=== PATIENT | female | born 1995 | race Caucasian/White ===

== ENCOUNTER 2020-07-01 19:20 | Inpatient (IN) | payer OTHER ==
[~2020-07-01] VITALS: Ht 172.7 cm; Wt 115.4 kg
[~2020-07-01 19:20] MED LIST: DOCU-131 PO; IBUP-1222 PO
[2020-07-03] MEDS ORDERED: PREN1TAB60 PO (08:42)
[2020-07-03] MEDS ORDERED: OXYcodone/APAP 5/325MG TABLET PO PRN ×2 (09:00→17:00)
[2020-07-03] MEDS ORDERED: MISOPROSTOL 200 MCG TABLET PR PRN ×2 (09:00→17:00)
[2020-07-03] MEDS ORDERED: OXYTOCIN 30U/ 0.9% NaCL 500ML 500 ML IV ONE (09:00)
[2020-07-03] MEDS ORDERED: DOCUSATE 100 MG CAPSULE PO PRN ×2 (09:00→17:00)
[2020-07-03] MEDS ORDERED: SIMETHICONE 80 MG CHEW TAB PO PRN ×2 (09:00→17:00)
[2020-07-03] MEDS: PRENATAL VIT/IRON/FA 1 EACH TABLET PO SCH (09:00)
[2020-07-03] MEDS ORDERED: TERBUTALINE 1 MG/ML, 1ML SQ PRN (09:00)
[2020-07-03] MEDS ORDERED: ONDANSETRON 2MG/ML, 2ML IVPush PRN (09:00)
[2020-07-03] MEDS ORDERED: FENTANYL PF 100 MCG/2ML IVPush PRN (09:00)
[2020-07-03] MEDS ORDERED: TERBUTALINE 1 MG/ML, 1ML IVPush PRN (09:00)
[2020-07-03] MEDS ORDERED: OXYTOCIN 30U/ 0.9% NaCL 500ML 500 ML IV PRN (09:00)
[2020-07-03] MEDS: OXYTOCIN 30U/ 0.9% NaCL 500ML 500 ML IV SCH ×3 (09:00→19:00)
[2020-07-03] MEDS ORDERED: D5%-LACTATED RINGERS 1,000 ML IV SCH (09:00)
[2020-07-03] MEDS: LACTATED RINGERS 1,000 ML IV SCH ×2 (09:09→16:29)
[2020-07-03] MEDS ORDERED: MISOPROSTOL 200 MCG TABLET ONE (09:12)
[2020-07-03] MEDS ORDERED: LIDOCAINE 1%, 20ML ONE (09:12)
[2020-07-03] MEDS ORDERED: NEWBORN KIT ONE (09:12)
[2020-07-03] MEDS ORDERED: OXYTOCIN 30U/ 0.9% NaCL 500ML 500 ML ONE ×2 (09:13→17:44)
[2020-07-03 09:21] LABS: BASOPHILS % (AUTO) 1 % (0-1); EOSINOPHILS % (AUTO) 2 % (1-7); LYMPHOCYTES % (AUTO) 15 % (22-44); MEAN CORPUSCULAR HEMOGLOBIN 32.1 pg (27.0-34.8); MONOCYTES % (AUTO) 4 % (2-9); NEUTROPHILS % (AUTO) 79 % (42-75); PLATELET COUNT 155 x10^3/uL (130-400); RED BLOOD COUNT 3.94 x10^6/uL (3.82-5.3); RED CELL DISTRIBUTION WIDTH 13.9 % (9.6-15.2)
[2020-07-03 09:22] LABS: MD NO
[2020-07-03 09:38] VITALS: BP 122/75
[2020-07-03] MEDS ORDERED: FENTANYL PF 100 MCG/2ML ONE (16:45)
[2020-07-03] MEDS: FENTANYL PF 100 MCG/2ML IV PRN ×2 (16:47→16:52)
[2020-07-03] MEDS ORDERED: ONDANSETRON 2MG/ML, 2ML IV PRN (17:00)
[2020-07-03] MEDS ORDERED: CALCIUM CARBONATE 500 MG TAB.CHEW PO PRN (17:00)
[2020-07-03] MEDS ORDERED: IBUPROFEN 600 MG TABLET PO PRN (17:00)
[2020-07-03] MEDS ORDERED: OXYcodone IR 5MG TABLET PO PRN (17:00)
[2020-07-03] MEDS ORDERED: IBUPROFEN 600 MG TABLET ONE (17:44)
[2020-07-03] MEDS: IBUPROFEN 600 MG TABLET PO PRN (17:46)
[2020-07-03 21:08] VITALS: BP 118/73
[2020-07-03 23:57] VITALS: BP 110/74
[2020-07-04] MEDS: IBUPROFEN 600 MG TABLET PO PRN ×3 (00:22→13:30)
[2020-07-04] MEDS: OXYTOCIN 30U/ 0.9% NaCL 500ML 500 ML IV SCH ×3 (03:00→13:00)
[2020-07-04 04:26] VITALS: BP 116/72
[2020-07-04 05:28] LABS: BASOPHILS % (AUTO) 0 % (0-1); EOSINOPHILS % (AUTO) 0 % (1-7); LYMPHOCYTES % (AUTO) 15 % (22-44); MEAN CORPUSCULAR HEMOGLOBIN 32.4 pg (27.0-34.8); MEAN CORPUSCULAR HGB CONC 34.4 g/dL (32.4-35.8); MEAN PLATELET VOLUME 10.1 fL (7.4-10.4); MONOCYTES % (AUTO) 5 % (2-9); NEUTROPHILS % (AUTO) 80 % (42-75); PLATELET COUNT 139 x10^3/uL (130-400); RED BLOOD COUNT 3.65 x10^6/uL (3.82-5.3); RED CELL DISTRIBUTION WIDTH 14.2 % (9.6-15.2)
[2020-07-04 05:44] LABS: MD NO
[2020-07-04 07:30] VITALS: BP 123/80
[2020-07-04] MEDS: PRENATAL VIT/IRON/FA 1 EACH TABLET PO SCH (07:49)
[2020-07-04] MEDS: OXYcodone/APAP 5/325MG TABLET PO PRN ×2 (07:49→13:33)
[2020-07-04] MEDS ORDERED: PRENATAL VIT/IRON/FA 1 EACH TABLET PO SCH (09:00)
[2020-07-04] MEDS ORDERED: IBUP-1222 PO (10:10)
[2020-07-04 12:26] VITALS: BP 113/73
== END 2020-07-04 16:10 | disposition home or self-care (01) | DRG 807 ==
LOC: LDIP 07-03 08:31 → 2NW 07-03 19:39
PROVIDERS: ADMIT Obstetrics & Gynecology; ATTEND Obstetrics & Gynecology
PROC: 10E0XZZ Delivery of Products of Conception, External Approach (ICD-10-PCS; principal; 2020-07-03)
PROC: 0KQM0ZZ Repair Perineum Muscle, Open Approach (ICD-10-PCS; 2020-07-03)
DX: O69.81X0 Labor and delivery complicated by cord around neck, without compression, not applicable or unspecified (principal); Z37.0 Single live birth; O48.0 Post-term pregnancy; O70.1 Second degree perineal laceration during delivery; Z20.822 Contact with and (suspected) exposure to COVID-19; Z3A.40 40 weeks gestation of pregnancy; Z83.3 Family history of diabetes mellitus
CPT/HCPCS: 36415; 85025; 86592; 86850; 86900; 87635; G0378; J3010; J2590; J7120